=== PATIENT | male | born 1965 | race Caucasian/White ===

== ENCOUNTER 2019-03-13 14:46 | Outpatient (CLI) | payer OTHER ==
[2019-03-13] MEDS ORDERED: ESTR0.5T PO (15:07)
[2019-03-13] MEDS ORDERED: HYDR200T72 PO (15:28)
[2019-03-13 15:32] LABS: BASOPHILS # (AUTO) 0.03 x10^3/uL (0-0.1); BASOPHILS % (AUTO) 1 % (0-1); EOSINOPHILS # (AUTO) 0.12 x10^3/uL (0-0.4); EOSINOPHILS % (AUTO) 2 % (1-7); LYMPHOCYTES # (AUTO) 2.48 x10^3/uL (1-3.4); LYMPHOCYTES % (AUTO) 46 % (22-44); MD NO; MEAN CORPUSCULAR HEMOGLOBIN 32.3 pg (27.5-34.5); MEAN CORPUSCULAR HGB CONC 33.8 g/dL (33.2-36.2); MEAN CORPUSCULAR VOLUME 95.5 fL (81-97); MEAN PLATELET VOLUME 7.5 fL (7.4-10.4); MONOCYTES # (AUTO) 0.52 x10^3/uL (0.2-0.8); MONOCYTES % (AUTO) 10 % (2-9); NEUTROPHILS # (AUTO) 2.21 x10^3/uL (1.8-6.8); NEUTROPHILS % (AUTO) 41 % (42-75); PLATELET COUNT 192 x10^3/uL (130-400); RED BLOOD COUNT 4.25 x10^6/uL (4.38-5.82); RED CELL DISTRIBUTION WIDTH 12.8 % (9.4-14.8)
[2019-03-13 15:41] LABS: ALBUMIN 3.9 g/dL (3.4-5.0); ANION GAP 4 mmol/L (5-15); CALCIUM 9.1 mg/dL (8.5-10.1); CHLORIDE 107 mmol/L (98-107)
[2019-03-13 15:44] LABS: ALANINE AMINOTRANSFERASE 40 U/L (12-78); ALKALINE PHOSPHATASE 66 U/L (45-117); BILIRUBIN,TOTAL 0.6 mg/dL (0.2-1.0); CREATININE 0.79 mg/dL (0.7-1.3); TOTAL PROTEIN 7.3 g/dL (6.4-8.2)
== END 2019-03-13 23:59 | disposition home or self-care (01) ==
LOC: STAR 14:46
PROVIDERS: ATTEND Internal Medicine Cardiovascular Disease
DX: Z01.810 Encounter for preprocedural cardiovascular examination (principal); I20.9 Angina pectoris, unspecified; R94.31 Abnormal electrocardiogram [ECG] [EKG]; R00.2 Palpitations; M19.90 Unspecified osteoarthritis, unspecified site
CPT/HCPCS: 36415; 80053; 85025

== ENCOUNTER → 2019-04-15 | Outpatient (CLI) | payer OTHER ==
[~2019-04-15] MED LIST: ESTR0.5T PO; HYDR200T72 PO
== END | disposition home or self-care (01) ==
LOC: EDSEX 09:45 → CFH 09:45
PROVIDERS: ATTEND Nurse Practitioner Family
DX: N60.02 Solitary cyst of left breast (principal); N60.01 Solitary cyst of right breast; R92.8 Other abnormal and inconclusive findings on diagnostic imaging of breast
CPT/HCPCS: 76642; 77066; G0279

== ENCOUNTER → 2020-12-28 | Outpatient (CLI) | payer OTHER | END | disposition home or self-care (01) | LOC: CFH 12:16 | PROVIDERS: ATTEND Nurse Practitioner Family | DX: N60.01 Solitary cyst of right breast (principal); Z98.82 Breast implant status | CPT/HCPCS: 76642; 77061; 77065; G0279 ==